=== PATIENT | male | born 1980 | race Caucasian/White ===

== ENCOUNTER 2018-11-06 18:43 | Emergency (ER) | payer MEDICAID ==
[~2018-11-06] VITALS: Ht 165.1 cm; Wt 87.5 kg
[2018-11-06 18:47] VITALS: BP 142/95
--- NOTE | 2018-11-06 18:55 | NUR ---
C/O L SIDED FACIAL PAIN/NUMBNESS STARTING TODAY AFTER HAVING 2 BEERS. 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 FACIAL SWELLING NOTED TO L SIDE. CLEAR SPEECH, ANSWERING QUESTIONS APPROPRIATLY.
--- NOTE | 2018-11-06 20:00 | NUR ---
PT RESTING IN BED, ALERT AND ORIENTED AT THIS TIME.
[2018-11-06 20:30] LABS: BASOPHILS % (AUTO) 1.1 % (0.0-2.0); EOSINOPHILS # (AUTO) 0.1 K/uL (0-0.4); EOSINOPHILS % (AUTO) 2.1 % (0.0-4.0); HEMATOCRIT 38.4 % (36-52); LYMPHOCYTES # (AUTO) 1.8 K/uL (2.0-11.5); LYMPHOCYTES % (AUTO) 50.3 % (20.5-51.1); MEAN CORPUSCULAR HEMOGLOBIN 33 pg (27-31); MEAN CORPUSCULAR HGB CONC 34 g/dL (33-37); MEAN CORPUSCULAR VOLUME 97.5 fL (80-94); MONOCYTES # (AUTO) 0.4 K/uL (0.8-1.0); MONOCYTES % (AUTO) 11.8 % (1.7-9.3); NEUTROPHILS # (AUTO) 1.2 K/uL (1.8-7.7); NEUTROPHILS % (AUTO) 34.7 % (42.2-75.2); PLATELET COUNT (AUTO) 115 K/uL (140-450); RED BLOOD CELL COUNT(AUTO) 3.94 MIL/uL (4.20-6.10); RED CELL DISTRIBUTION WIDTH 13.7 % (11.6-13.7); WHITE BLOOD COUNT (AUTO) 3.6 K/uL (4.8-10.8)
[2018-11-06 20:44] LABS: ANION GAP 18.8 (8-16); CARBON DIOXIDE 26.8 mmol/L (21-32); POTASSIUM 3.6 mmol/L (3.5-5.1)
[2018-11-06 20:45] LABS: CREATININE 0.7 mg/dL (0.7-1.3)
[2018-11-06 20:49] LABS: ALBUMIN 3.6 g/dL (3.4-5.0); TOTAL BILIRUBIN 0.4 mg/dL (0.0-1.0)
[2018-11-06 21:15] VITALS: BP 138/86
--- NOTE | 2018-11-06 21:15 | NUR ---
Patient discharged with v/s stable. Written and verbal after care instructions given and explained. Patient verbalized understanding. Ambulatory with steady gait. All questions addressed prior to discharge. Advised to follow up with PMD.
== END 2018-11-06 21:15 | disposition home or self-care (01) ==
LOC: MED 18:43
DX: R20.2 Paresthesia of skin (principal)
CPT/HCPCS: 36415; 80053; 85025; 99283

== ENCOUNTER 2019-09-14 22:17 | Emergency (ER) | payer MEDICAID ==
[~2019-09-14] VITALS: Ht 175.3 cm; Wt 99.3 kg
[2019-09-14 22:40] VITALS: BP 117/79
--- NOTE | 2019-09-14 22:50 | NUR ---
39 Y/O M C/O VOMITING X 2 DAYS, HEADACHE, FEVER, BODYACHES X 3 DAYS AND DIARRHEA X1 DAY. LUNG SOUNDS CLEAR UPON AUSCULTATION. NO RESPIRATORY DISTRESS NOTED. SYMMETRICAL CHEST RISE. PT DOES ADMIT ALCOHOL DRINKING TODAY. BED IN LOWEST POSITION, SIDE RAIL UP X1. PMH: DENIES ALLERGIES: NONE
--- NOTE | 2019-09-14 22:55 | NUR ---
DR. DELAROSA AT BEDSIDE.
[2019-09-14 23:00] VITALS: BP 117/79
== END 2019-09-14 23:58 | disposition home or self-care (01) ==
LOC: MED 22:17
DX: R11.2 Nausea with vomiting, unspecified (principal)
CPT/HCPCS: 99281

== ENCOUNTER 2019-11-21 21:59 | Emergency (ER) | payer MEDICAID ==
[~2019-11-21] VITALS: Ht 175.3 cm; Wt 86.2 kg
[2019-11-21 22:05] VITALS: BP 127/87
[2019-11-21] MEDS ORDERED: DICYCLOMINE HCL LIQUID 20 MG, ALUMINUM HYD/MAG/SIMETHICONE 30 ML, LIDOCAINE VISCOUS 2% ... PO ONE ×3 (22:15)
== END 2019-11-21 22:19 | disposition left against medical advice (07) ==
LOC: MED 21:59
DX: M79.10 Myalgia, unspecified site (principal); R50.9 Fever, unspecified; Z53.21 Procedure and treatment not carried out due to patient leaving prior to being seen by health care provider
CPT/HCPCS: 99283

== ENCOUNTER 2019-12-22 20:35 | Emergency (ER) | payer MEDICAID ==
[~2019-12-22] VITALS: Ht 175.3 cm; Wt 81.6 kg
[2019-12-22 21:12] VITALS: BP 127/85
[2019-12-22 21:51] VITALS: BP 127/78
== END 2019-12-22 21:49 | disposition home or self-care (01) ==
LOC: MED 20:35
DX: R21 Rash and other nonspecific skin eruption (principal); B35.9 Dermatophytosis, unspecified
CPT/HCPCS: 99282